=== PATIENT | male | born 1990 ===

== ENCOUNTER 2016-06-28 20:38 | Emergency (ER) | payer BC ==
[2016-06-28 20:38] VITALS: BMI 29.9
[2016-06-28 20:53] VITALS: BP 114/67; PULSE 77; RESP 16; TEMP 98.6; O2SAT 98
--- NOTE | 2016-06-28 21:58 | ED PDOC ---
HPI: Dental Pain/Injury Time Seen by Provider: 06/28/16 21:30 Chief Complaint (Nursing): ENT Problem Chief Complaint (Provider): throat pain History Per: Patient History/Exam Limitations: no limitations Onset/Duration Of Symptoms: Days (x 3) Current Symptoms Are (Timing): Still Present Additional Complaint(s): Davie Sims is a 25 year old male, with no previous medical history, who presents to the ED with complaints of right sided dental pain ongoing for the past 3 days. Pt reports pain inhibits him from eating or drinking. Pt denies any drainage, cough or chest pain. Pt states an associated symptom of throat pain. PMD: none provided. Past Medical History Reviewed: Historical Data, Nursing Documentation, Vital Signs Vital Signs: Last Vital Signs Temp 98.6 F 06/28/16 20:52 Pulse 77 06/28/16 20:52 Resp 16 06/28/16 20:52 BP 114/67 06/28/16 20:52 Pulse Ox 98 06/28/16 20:52 - Medical History PMH: No Chronic Diseases - Family History Family History: States: Unknown Family Hx - Home Medications Home Medications: Ambulatory Orders Medication Instructions Recorded Clindamycin [Cleocin] 300 mg PO TID #30 cap 06/29/16 Methylprednisolone [Medrol Dose 4 mg PO DAILY #21 mg 06/29/16 Pack (21 tabs)] - Allergies Allergies/Adverse Reactions: Allergies Allergy/AdvReac Type Severity Reaction Status Date / Time No Known Allergies Allergy Verified 06/28/16 21:50 Review of Systems ROS Statement: Except As Marked, All Systems Reviewed And Found Negative Constitutional: Negative for: Fever ENT: Positive for: Mouth Pain, Throat Pain Physical Exam - Reviewed Nursing Documentation Reviewed: Yes Vital Signs Reviewed: Yes - Physical Exam Appears: Positive for: Well, Non-toxic, No Acute Distress Head Exam: Positive for: ATRAUMATIC, NORMAL INSPECTION, NORMOCEPHALIC Skin: Positive for: Normal Color, Warm, Dry ENT: Positive for: Pharyngeal Erythema (right sided), Tonsillar Swelling (right sided ), Other (right cervical lymphadenopathy. no uvula sweeling.). Negative for: Tonsillar Exudate - Laboratory Results Result Diagrams: 06/28/16 21:49 06/28/16 21:49 - ECG O2 Sat by Pulse Oximetry: 98 (RA) Pulse Ox Interpretation: Normal Medical Decision Making Medical Decision Making: Initial Impression: pharyngeal abscess Initial Plan: * CT soft tissue * labs * reevaluation * strep rapid-negative * * ct scan * IMPRESSION: Asymmetric enlargement of the right tonsil. 1 cm hypoattenuating focus at the medial aspect of the right tonsil, question focus of developing abscess. discussed with isidro. pt without current compromise. pt with stable vS and no elevated WBC. pt will be given PO cleocin and medrol dose pack advised to f.u zee enriquez. ENT for outpt f/u Scribe Attestation: Documented by Dora Yan, acting as a scribe for Shelia Daniels PA-C. Provider Scribe Attestation: All medical record entries made by the Scribe were at my direction and personally dictated by me. I have reviewed the chart and agree that the record accurately reflects my personal performance of the history, physical exam, medical decision making, and the department course for this patient. I have also personally directed, reviewed, and agree with the discharge instructions and disposition Disposition - Clinical Impression Clinical Impression: Tonsil, abscess - Patient ED Disposition Is Patient to be Admitted: No - Disposition Referrals: [facility] [Outside] Juancarlos Enriquez MD [Staff Provider] - Disposition: Routine/Home Disposition Time: 00:06 Condition: STABLE Prescriptions: Clindamycin [Cleocin] 300 mg PO TID #30 cap Methylprednisolone [Medrol Dose Pack (21 tabs)] 4 mg PO DAILY #21 mg Instructions: Peritonsillar Abscess (ED) Forms: [facility] ED School/Work Excuse Print Language: LAO
[2016-06-28 22:26] LABS: BASO # 0.1 K/uL (0.0-0.2); BASO % 0.7 % (0.0-2.0); EOS # 0.3 K/uL (0.0-0.7); EOS % 3.1 % (0.0-4.0); HEMATOCRIT 45.8 % (35.0-51.0); LYMPH # 2.5 K/uL (1.0-4.3); LYMPH % 24.8 % (20.0-40.0); MEAN CELL VOLUME 91.6 fl (80.0-94.0); MEAN CORPUSCULAR HEMOGLOBIN 31.1 pg (27.0-31.0); MEAN CORPUSCULAR HGB CONC 33.9 g/dL (33.0-37.0); MEAN PLATELET VOLUME 8.4 fl (7.2-11.7); MONO # 0.9 K/uL (0.0-0.8); MONO % 8.7 % (0.0-10.0); NEUT # 6.4 K/uL (1.8-7.0); NEUT % 62.7 % (50.0-75.0); RED CELL DISTRIBUTION WIDTH 13.1 % (11.5-14.5); WHITE BLOOD COUNT 10.2 K/uL (4.8-10.8)
[2016-06-28 22:35] LABS: ALB/GLOB RATIO 1.3 (1.0-2.1); ALKALINE PHOSPHATASE 79 U/L (38-126); ALT/SGPT 59 U/L (21-72); AST/SGOT 24 U/L (17-59); BILIRUBIN,TOTAL 0.6 mg/dl (0.2-1.3); BLOOD UREA NITROGEN 16 mg/dl (9-20); CALCIUM 9.1 mg/dL (8.4-10.2); CARBON DIOXIDE 26 mmol/L (22-30); CHLORIDE 105 mmol/L (98-107); GFR AFRICAN-AMERICAN > 60; GLUCOSE,RANDOM 92 mg/dL (75-110); POTASSIUM 4.3 MMOL/L (3.6-5.0); SODIUM 144 mmol/l (132-148); TOTAL PROTEIN 7.3 G/DL (6.3-8.2)
[2016-06-28] MEDS ORDERED: Sodium Chloride 0.9% 50 ML IV ONE (22:52)
[2016-06-28] MEDS ORDERED: Iohexol 300 100 ML IJ ONE (22:52)
--- NOTE | 2016-06-28 23:59 | CT ---
EXAM: CT Neck With Intravenous Contrast CLINICAL HISTORY: 25 years old, male; Signs and symptoms; Abscess, tonsil and tonsilitis; Additional info: Swelling to right tonsil TECHNIQUE: Axial computed tomography images of the neck with intravenous contrast. This CT exam was performed using one or more of the following dose reduction techniques: automated exposure control, adjustment of the mA and/or kV according to patient size, and/or use of iterative reconstruction technique. Coronal and sagittal reformatted images were created and reviewed. CONTRAST: 80 mL of [id number] administered intravenously. COMPARISON: No relevant prior studies available. FINDINGS: Nasopharynx: Unremarkable as visualized. Oropharynx: Asymmetric enlargement of the right tonsil. There is a 1 cm hypoattenuating focus at the medial aspect of the right tonsil, question focus of developing abscess. Hypopharynx: Unremarkable as visualized. Larynx: Unremarkable as visualized. Normal epiglottis. Trachea: Unremarkable as visualized. Retropharyngeal space: Unremarkable as visualized. Submandibular/parotid glands: Glands are normal in size. Thyroid: Unremarkable as visualized. No enlarged or calcified nodules. Bones: No acute fracture. Soft tissues: Unremarkable as visualized. Vasculature: No acute findings. Lymph nodes: Enlarged level IIA node on the right. Predominantly shotty nodes. Lung apices: Unremarkable as visualized. IMPRESSION: Asymmetric enlargement of the right tonsil. 1 cm hypoattenuating focus at the medial aspect of the right tonsil, question focus of developing abscess. Additional details/findings as above.
== END 2016-06-29 00:12 | disposition home or self-care (01) ==
LOC: H.ER 20:38
DX: J39.1 Other abscess of pharynx (principal)
CPT/HCPCS: 70491; 80053; 85025; 87070; 87430; 99283; Q9967

== ENCOUNTER 2017-06-05 18:04 | Emergency (ER) | payer BC ==
[2017-06-05 18:04] VITALS: BMI 29.9
[2017-06-05 18:10] VITALS: BP 128/81; PULSE 78; RESP 18; TEMP 96.4; O2SAT 99
--- NOTE | 2017-06-05 19:24 | ED PDOC ---
History of Present Illness History of Present Illness: Davie Sims is a 26 year old male, with no significant past medical history, who presents to the emergency department complaining of headache, nausea, and fever onset since today. Patient took ibuprofen with improvement of symptoms. No sick contacts or recent travel. He denies any vomit, diarrhea or other medical complaints. PMD: None provided. HPI: Influenza Time Seen by Provider: 06/05/17 18:52 Chief Complaint: Headache Chief Complaint (Provider): Headache History Per: Patient Exam Limitations: no limitations Onset/Duration Of Symptoms: Hrs (today) Symptoms include: fever, headache, other (nausea). denies: vomiting, diarrhea Sick Contacts (Context): None Past Medical History Reviewed: Historical Data, Nursing Documentation, Vital Signs Vital Signs: Last Vital Signs Temp 96.4 F L 06/05/17 18:08 Pulse 78 06/05/17 18:08 Resp 18 06/05/17 18:08 BP 128/81 06/05/17 18:08 Pulse Ox 99 06/05/17 18:08 - Medical History PMH: No Chronic Diseases - Surgical History Surgical History: No Surg Hx - Family History Family History: States: Unknown Family Hx - Social History Current smoker - smoking cessation education provided: Yes (Heavy smoker >10 cigarettes daily) Alcohol: Social Drugs: Denies - Home Medications Home Medications: Ambulatory Orders Medication Instructions Recorded Clindamycin [Cleocin] 300 mg PO TID #30 cap 06/29/16 Methylprednisolone [Medrol Dose 4 mg PO DAILY #21 mg 06/29/16 Pack (21 tabs)] Oseltamivir [Tamiflu] 75 mg PO BID #10 cap 06/05/17 - Allergies Allergies/Adverse Reactions: Allergies Allergy/AdvReac Type Severity Reaction Status Date / Time No Known Allergies Allergy Verified 06/28/16 21:50 Review of Systems ROS Statement: Except As Marked, All Systems Reviewed And Found Negative Constitutional: Positive for: Fever Gastrointestinal: Positive for: Nausea. Negative for: Vomiting, Diarrhea Neurological: Positive for: Headache Physical Exam - Reviewed Nursing Documentation Reviewed: Yes Vital Signs Reviewed: Yes - Physical Exam Appears: Positive for: Well, Non-toxic, No Acute Distress Head Exam: Positive for: ATRAUMATIC, NORMAL INSPECTION, NORMOCEPHALIC Skin: Positive for: Normal Color, Warm, Dry Eye Exam: Positive for: Normal appearance, EOMI, PERRL ENT: Positive for: Normal ENT Inspection Neck: Positive for: Painless ROM Cardiovascular/Chest: Positive for: Regular Rate, Rhythm. Negative for: Murmur Respiratory: Positive for: Normal Breath Sounds. Negative for: Respiratory Distress Gastrointestinal/Abdominal: Positive for: Normal Exam, Soft. Negative for: Tenderness Extremity: Positive for: Normal ROM. Negative for: Tenderness, Deformity, Swelling Neurologic/Psych: Positive for: Alert, Oriented (x3), Gait (steady). Negative for: Motor/Sensory Deficits, Aphasia, Facial Droop, Other (no focal deficits.) Medical Decision Making Medical Decision Making: Initial Impression: Influenza Initial Plan: 19:22 Upon provider reevaluation patient is feeling better, is medically stable, and requires no further treatment in the ED at this time. Patient will be discharged home with Rx for tamiflu. Counseling was provided and all questions were answered regarding diagnosis. There is agreement to discharge plan. Return if symptoms persist or worsen. ~ Scribe Attestation: Documented by Shahriar Rajput, acting as a scribe for Celeste Cavazos PA-C. Provider Scribe Attestation: All medical record entries made by the Scribe were at my direction and personally dictated by me. I have reviewed the chart and agree that the record accurately reflects my personal performance of the history, physical exam, medical decision making, and the department course for this patient. I have also personally directed, reviewed, and agree with the discharge instructions and disposition. - ECG O2 Sat by Pulse Oximetry: 99 (RA) Pulse Ox Interpretation: Normal Disposition - Clinical Impression Clinical Impression: Influenza - Patient ED Disposition Is Patient to be Admitted: No Counseled Patient/Family Regarding: Diagnosis, Need For Followup, Rx Given - Disposition Disposition: Routine/Home Disposition Time: 19:25 Prescriptions: Oseltamivir [Tamiflu] 75 mg PO BID #10 cap Instructions: Flu, Adult (DC) Forms: [facility] (Malay) Print Language: VIETNAMESE
== END 2017-06-05 19:33 | disposition home or self-care (01) ==
LOC: H.ER 18:04
DX: J11.1 Influenza due to unidentified influenza virus with other respiratory manifestations (principal); F17.210 Nicotine dependence, cigarettes, uncomplicated

== ENCOUNTER 2018-03-12 19:20 | Emergency (ER) | payer BC ==
[2018-03-12 19:20] VITALS: BMI 29.9
[2018-03-12 20:23] VITALS: RESP 16
--- NOTE | 2018-03-12 20:51 | ED PDOC ---
HPI: General Adult Time Seen by Provider: 03/12/18 20:27 Chief Complaint (Nursing): Fever Chief Complaint (Provider): Fever History Per: Patient History/Exam Limitations: no limitations Onset/Duration Of Symptoms: Days (3x) Current Symptoms Are (Timing): Still Present Severity: Moderate Additional Complaint(s): 27 year old male with no pertinent past medical history presents to the ED for an evaluation of a fever that started 3x days ago. Patient reports having associated symptoms of congestion, headaches, cough and bodyaches worsening at night. Patient reports taking amoxicillin with no relief. Patient denies having nausea, vomiting, abdominal pain or diarrhea. PMD: None provided. Past Medical History Reviewed: Historical Data, Nursing Documentation, Vital Signs Vital Signs: Last Vital Signs Temp 102 F H 03/12/18 20:20 Pulse 115 H 03/12/18 20:20 Resp 16 03/12/18 20:20 BP 142/88 03/12/18 20:20 Pulse Ox 100 03/12/18 20:20 - Medical History PMH: No Chronic Diseases - Surgical History Surgical History: No Surg Hx - Family History Family History: States: No Known Family Hx - Social History Drugs: Denies - Immunization History Hx Influenza Vaccination: Yes - Home Medications Home Medications: Ambulatory Orders Medication Instructions Recorded Clindamycin [Cleocin] 300 mg PO TID #30 cap 06/29/16 Methylprednisolone [Medrol Dose 4 mg PO DAILY #21 mg 06/29/16 Pack (21 tabs)] Oseltamivir Cap [Tamiflu] 75 mg PO BID #10 cap 06/05/17 Ibuprofen [Motrin] 600 mg PO Q6 #20 tab 03/12/18 Oseltamivir Cap [Tamiflu] 75 mg PO BID 5 Days cap 03/12/18 - Allergies Allergies/Adverse Reactions: Allergies Allergy/AdvReac Type Severity Reaction Status Date / Time No Known Allergies Allergy Verified 03/12/18 20:20 Review of Systems ROS Statement: Except As Marked, All Systems Reviewed And Found Negative Constitutional: Positive for: Fever, Other (bodyaches) ENT: Positive for: Throat Pain. Negative for: Nose Congestion Respiratory: Negative for: Cough Gastrointestinal: Negative for: Diarrhea Neurological: Positive for: Headache Physical Exam - Reviewed Nursing Documentation Reviewed: Yes Vital Signs Reviewed: Yes - Physical Exam Appears: Positive for: Well, Non-toxic, No Acute Distress Head Exam: Positive for: ATRAUMATIC, NORMOCEPHALIC Skin: Positive for: Normal Color, Warm, Dry Eye Exam: Positive for: Normal appearance ENT: Positive for: Normal ENT Inspection, TM Is/Are (normal). Negative for: Nasal Congestion, Pharyngeal Erythema Cardiovascular/Chest: Positive for: Regular Rate, Rhythm Respiratory: Positive for: Normal Breath Sounds Neurologic/Psych: Positive for: Alert, Oriented (3x) - ECG O2 Sat by Pulse Oximetry: 100 (RA) Pulse Ox Interpretation: Normal Medical Decision Making Medical Decision Makin:27 Initial impression: 27 year old male with a fever. Initial plan: * XRay chest 2 views * influenza A B * toradol 30 mg IM * reevaluation * * Repeat temp 99.8 F * CXR: NAd, as read by RANJIT * * Viral syndrome and discussed, as well as common duration and supportive care measures. Scribe Attestation: Documented by Ita Lo, acting as a scribe for Elisabet Tomas. Provider Scribe Attestation: All medical record entries made by the Scribe were at my direction and personally dictated by me. I have reviewed the chart and agree that the record accurately reflects my personal performance of the history, physical exam, medical decision making, and the department course for this patient. I have also personally directed, reviewed, and agree with the discharge instructions and disposition. Disposition - Clinical Impression Clinical Impression: Fever in adult, Influenza-like symptoms - Patient ED Disposition Is Patient to be Admitted: No - Disposition Disposition: Routine/Home Disposition Time: 22:31 Condition: STABLE Prescriptions: Ibuprofen [Motrin] 600 mg PO Q6 #20 tab Oseltamivir Cap [Tamiflu] 75 mg PO BID 5 Days cap Instructions: Fever, Adult (DC) Forms: [facility] (Ethiopian)
[2018-03-12 22:40] VITALS: BP 139/78; PULSE 97; TEMP 99.8; O2SAT 97
--- NOTE | 2018-03-13 08:56 | RAD ---
Date of service: 03/12/2018 HISTORY: fever and cough COMPARISON: Chest radiographs 08/22/2011. TECHNIQUE: Chest PA and lateral FINDINGS: LUNGS: No active pulmonary disease. PLEURA: No significant pleural effusion identified. No pneumothorax apparent. CARDIOVASCULAR: No aortic atherosclerotic calcification present. Normal cardiac size. No pulmonary vascular congestion. OSSEOUS STRUCTURES: No significant abnormalities. VISUALIZED UPPER ABDOMEN: Normal. OTHER FINDINGS: None. IMPRESSION: No interval acute cardiopulmonary disease appreciated.
== END 2018-03-12 22:40 | disposition home or self-care (01) ==
LOC: H.ER 19:20
DX: R50.9 Fever, unspecified (principal); J11.1 Influenza due to unidentified influenza virus with other respiratory manifestations
CPT/HCPCS: 71046; 87804; 96372; 99283; J1885